=== PATIENT | male | born 1955 | race African-American/Black ===

== ENCOUNTER 2019-05-14 14:25 | Inpatient (IN) | payer MEDICAID ==
--- NOTE | 2019-05-14 14:33 | ER Document Report ---
ED Neuro Symptoms/Deficit - General Stated Complaint: POSSIBLE STROKE Time Seen by Provider: 05/14/19 14:26 Information source: Patient, Relative, Emergency Med Personnel Cannot obtain history due to: Altered mental status Notes: 63-year-old male presents the emergency department for sudden onset of strokelike symptoms. Last known well was 1345 on 05/14/2019. Patient is unable to provide any history due to aphasia. states that they were leaving their nephew's when he suddenly developed right-sided weakness, difficulty speaking and confusion. He also had difficulty with his balance. Patient has n o prior history of stroke but did have a stent placed 1 year ago for heart attack. Patient nods his head yes that he takes blood thinners however when discussing with his pharmacy in [place] they have no blood thinners on record. thinks that he stopped his Plavix at least a month ago. Denies any head injury. - Related Data Allergies/Adverse Reactions: hydrocodone Allergy (Verified 05/14/19 15:54) Past Medical History - General Information source: Patient - Occasionally shakes his head yes and no., Relative - Foot bedside., Emergency Med Personnel - Social History Smoking Status: Former Smoker Frequency of alcohol use: None Drug Abuse: None Family History: CAD Review of Systems - Review of Systems -: Yes ROS unobtainable due to patient's medical condition - Only able to obtained from patient that there is no pain and that there is Constitutional: See HPI, Weakness EENT: denies: Ear discharge, Nose congestion, Nose discharge, Sinus pressure Cardiovascular: No symptoms reported. denies: Chest pain Respiratory: No symptoms reported. denies: Cough, Short of breath Gastrointestinal: No symptoms reported. denies: Nausea, Vomiting Musculoskeletal: See HPI Hematologic/Lymphatic: See HPI. denies: Anemia, Blood clots, Easy bleeding, Easy bruising Neurological/Psychological: See HPI -: Yes All other systems reviewed and negative - Most of this comes from the at bedside. Physical Exam - Notes Notes: GENERAL: Awake, laying in the stretcher, on initial examination patient is tearful and anxious. HEAD: Normocephalic, atraumatic EYES: Pupils equal, round and reactive to light, extraocular movements intact. ENT: Oral mucosa moist, tongue midline. NECK: Full range of motion, supple, trachea midline. LUNGS: Clear to auscultation bilaterally, no wheezes, rales or rhonchi, no respiratory distress. HEART: Regular rate and rhythm, no murmurs, gallops, rubs. ABDOMEN: Soft, nontender, nondistended, bowel sounds present in all 4 quadrants. EXTREMITIES: Spontaneously moves his bilateral lower extremities in order to move in the bed but is unable to follow commands to lift either leg. There is no edema, he is able to lift both hands off the bed but cannot keep either of them in the air in order to fully complete the NIH testing, he has more ataxia with irsdoy-qu-hqni testing on the right than he does on the left. No edema, radial and dorsalis pedis pulses 2/4 bilaterally. No cyanosis. NEUROLOGICAL: Both receptive and expressive aphasia, the expressive aphasia is worse than the receptive aphasia. Almost none of his speech is understandable to me. His has slightly more success understanding a few words here and there. Patient spends quite a bit of time stuttering and searching for words. Patient's speech is slurred and nonsensical, biceps and patellar DTRs 2+ bilaterally. PSYCH: Anxious and tearful. SKIN: Warm, Dry, normal turgor, keloids on his chest. Course - Re-evaluation Re-evalutation: 05/14/19 15:18 Acute stroke symptoms are present, no contraindications noted, last known well was 1345. NIH 20. Please see nursing notes for detailed scale as well as paper charting. Discussed risks and benefits of TPA with and patient including approximately 8% risk of intracranial hemorrhage with approximately 3% risk of but approximately 30% chance of improvement with TPA. Patient and state that they would like to receive the medication. Patient will receive the medication and have a CTA of the head and neck to look for large vessel occlusion. CT without contrast was negative for hemorrhage. 05/14/2019 19:05 CBC unremarkable, coags normal, CMP shows slightly elevated creatinine at 1.38, no old to compare to, cardiac enzymes negative. Patient's NIH is initially 20 although he does have some difficulty following commands to move his legs on both sides. I suspect this is due to a receptive a aphasia and that he does not understand the command rather than true weakness. While he is not able to lift his legs off the bed prior to receiving the TPA he did try to adjust himself in the bed and he spontaneously moved both lower extremities. After receiving TPA patient did have some improvement in his symptoms, he is now able to raise both legs off the bed without difficulty, he is able to say the word "hospital" and to say his age. Discussed case with Dr. Nascimento the booth supervisor who agreed to admit the patient to his service in the intensive care unit so long as I consulted with a neurologist. Chest X-Ray 05/14/19 14:27 IMPRESSION: 1. No acute cardiopulmonary disease. 2. Scattered pulmonary nodules, several of which are indeterminate. A follow-up CT of the chest with IV contrast is recommended. 3. Probable bronchiectasis and pleural and parenchymal scarring at the left lung apex. Head CT 05/14/19 14:27 IMPRESSION: No acute findings EVIDENCE OF ACUTE STROKE: NO. Head CTA 05/14/19 14:50 IMPRESSION: NO CTA EVIDENCE OF STENOSIS OR ANEURYSM OF THE [place]. Neck CTA 05/14/19 14:50 IMPRESSION: NO CTA EVIDENCE OF STENOSIS OR ANEURYSM OF THE [place]. 05/14/19 19:06 I discussed the case with Dr. Lizama the on-call neurologist at [facility]. He is happy to consult on this patient at any point should anything change. He is glad to get a CT angios of the head and neck to look for large ve ssel occlusion. It did not show any large vessel occlusion. He reiterated as long as our hospitalist is comfortable keeping the patient and performing post TPA care that this patient would just receive post TPA care which includes no antiplatelets or anticoagulants for the first 24 hours after receiving TPA, he should get a speech consult before he is fed, he should get a PT/OT consult at least 24 hours after his TPA was given. Recommends a CT scan of the head 24 hours after post TPA to look for post TPA bleed. Recommends starting antiplatelets after 24 hours after the TPA was given. 05/14/19 20:22 - Laboratory Result Diagrams: 05/14/19 14:51 05/14/19 14:51 - EKG Interpretation by Me Additional EKG results interpreted by me: 05/14/19 20:19 EKG shows sinus rhythm at a rate of 88, normal axis, normal intervals, no ST segment elevations or depressions, no T wave inversions per my interpretation. Critical Care Note - Critical Care Note Total time excluding time spent on procedures (mins): 48 ED [employer]te[employer]ase [employer]/Exc Criteria - Date/Time patient last known well: Date/Time: 05/14/2019 13:45 - Inclusion Criteria: 1: Patient presented to ED within 3 hours of acute ischemic stroke symptom onset? -: Yes 2: Did baseline CT exclude intracranial hemorrhage and/or other risk factors? -: Yes 3: Is the age of the patient 18 years of age or greater? -: Yes : If any of the above questions are answered "NO" then stop, patient is not a candidate for Alteplase, : If all of the above questions are answered "YES" then continue with Exclusion Criteria. - Exclusion Criteria: 1: Is there evidence of intracranial hemorrhage on baseline CT? -: No 2: Is there suspicion of subarachnoid hemorrhage (even if CT negative)? -: No 3: Is there a history of serious head trauma, recent previous stroke or [place] within 3 months? -: No 4: Does the patient have a clinical presentation consistent with [place] or post-[place] pericarditis? -: No 5: Is there history of intracranial hemorrhage? -: No 6: On repeated measurement is Systolic BP greater than 185mmHg or Diastolic BP greater that 110 mmHg and is aggressive treatment needed to reduce blood pressure to these limits (e.g. constant infusion of an anti-hypertensive)? -: No 7: Did the patient awake with stroke symptoms? -: No 8: Has the patient had a lumbar puncture or an arterial puncture at a non- compressile site within 7 days? -: No 9: With in the last 14 days did the patient have surgery or major trauma? -: No 10: Is the patient or less than 2 weeks? -: No 11: Was there any active bleeding or acute trauma? -: No 12: Does the patient have intracranial neoplasm, arteriovenous malformation or aneurysm? -: No 13: Does the patient have abnormal glucose (less than 50 or greater than 400mg/dl)? Record glucose in Comment. -: No 14: Patient has rapidly improving symptoms at the time Alteplase is to be Admini stered. -: No 15: Does the patient have any risks for bleeding, including but not limited to: a.: Current use of Coumadin with PT greater than 15 seconds or INR greater than 1.7. b.: Current use of Pradaxa (Dabigatran). c.: Heparin administereed within the past 48 hours and PTT elevated. d.: Platelet count less than 100,000/mm. e.: Major surgery or serious trauma within 14 days. f.: Gastrointestinal or gynecological urinary bleeding within 14 days. g.: Myocardial Infarction ([place]) within 3 months. -: No : If the answer to any of the above questions is "YES" then stop, the patient is not a candidate for Alteplase. : If the answer to all of the above questions is "NO" then the patient may be eligible for the Administration of Alteplase. : If the patient is noted to have seizure activity at onset of Stroke symptoms; Consult Neurologist for further evaluation. - The patient is: -: Included and is eligible to receive Alteplase. *Initiate bed placement at higher level of care* --: Yes - Kept in ED for observation, then accepted to ICU Reviewed risks & benefits of thrombolytic therapy: I have reviewed the risks and benefits of thrombolytic therapy with the patient and/or his/her family. Yes -: Excluded and not eligible to receive Alteplase for the above exclusions. -: Excluded and not eligible to receive Alteplase for other reasons (specify in comments): - Diagnosis of TIA: -: Patient presented with transient symptoms that are now resolved and no other neurologic findings are currently present. List symptoms in comments. -: Patient is NOT a candidate for tPA. -: ____(put name in comment) has been consulted for admission and continued evaluation of risk factor assessment. Discharge - Discharge Clinical Impression: Acute ischemic stroke Condition: Serious Disposition: ADMITTED INPATIENT Admitting Provider: Pily (Packing Room Worker) Unit Admitted: ICU
--- NOTE | 2019-05-14 14:56 | RADIOLOGY REPORT (SQ) ---
EXAM DESCRIPTION: CT HEAD WITHOUT COMPLETED DATE/TIME: 05/14/2019 2:39 pm REASON FOR STUDY: stroke alert COMPARISON: None. TECHNIQUE: Axial images acquired through the brain without intravenous contrast. Images reviewed wi th bone, brain and subdural windows. Additional sagittal and coronal reconstructions were generated. Images stored on PACS. All CT scanners at this facility use dose modulation, iterative reconstruction, and/or weight based d osing when appropriate to reduce radiation dose to as low as reasonably achievable (ALARA). [facility]: Dose Right [facility]: CareDose [facility]: Dose Right [facility]: Teradose 4D [facility]: [employer] RADIATION DOSE: CT Rad equipment meets quality standard of care and radiation dose reduction techniq ues were employed. CTDIvol: 53.2 mGy. DLP: 1124 mGy-cm. mGy. LIMITATIONS: None. FINDINGS: VENTRICLES: Normal size and contour. CEREBRUM: No CT evidence of acute large territory ischemic change, acute intracranial hemorrhage, mas s effect, or midline shift. There are multiple areas of low attenuation in the right and left thalam us and right basal ganglia from old lacunar infarcts. Mild spotty chronic white matter disease. CEREBELLUM: No masses. No hemorrhage. No alteration of density. No evidence for acute infarction. EXTRAAXIAL SPACES: No fluid collections. No masses. ORBITS AND GLOBE: No intra- or extraconal masses. Normal contour of globe without masses. CALVARIUM: No fracture. PARANASAL SINUSES: No fluid or mucosal thickening. SOFT TISSUES: No mass or hematoma. OTHER: No other significant finding. IMPRESSION: No acute findings EVIDENCE OF ACUTE STROKE: NO. COMMENT: Pertinent positive or negative findings of the imaging study reported as a CRITICAL EXAM denise AGUIAR DO at14:40 on 05/14/2019. Category of Critical Exam: CT code stroke Quality ID # [id number]: Final reports with documentation of one or more dose reduction techniques (e.g., Au tomated exposure control, adjustment of the mA and/or kV according to patient size, use of iterative reconstruction technique) TECHNICAL DOCUMENTATION: JOB ID: [id number] [employer]- All Rights Reserved Reading location - IP/workstation name: [email or web address]
--- NOTE | 2019-05-14 14:56 | RADIOLOGY REPORT (SQ) ---
EXAM DESCRIPTION: CHEST SINGLE VIEW COMPLETED DATE/TIME: 05/14/2019 1:41 pm REASON FOR STUDY: stroke alert COMPARISON: None. EXAM PARAMETERS: NUMBER OF VIEWS: One view. TECHNIQUE: Single frontal radiographic view of the chest acquired. RADIATION DOSE: NA LIMITATIONS: None. FINDINGS: LUNGS AND PLEURA: There is no focal consolidation or pleural effusion. Linear atelectasis and probable bronchiectasis at the left upper lobe. A few scattered subcentimeter nodules some of w hich may be calcified granulomas. A few nodules are indeterminate such as a 5 mm nodule at the right mid lung. No pneumothorax. MEDIASTINUM AND HILAR STRUCTURES: No masses. Contour normal. HEART AND VASCULAR STRUCTURES: Heart normal in size. Normal vasculature. BONES: No acute findings. HARDWARE: None in the chest. OTHER: No other significant finding. IMPRESSION: 1. No acute cardiopulmonary disease. 2. Scattered pulmonary nodules, several of which are indeterminate. A follow-up CT of the chest with IV contrast is recommended. 3. Probable bronchiectasis and pleural and parenchymal scarring at the left lung apex. TECHNICAL DOCUMENTATION: JOB ID: [id number] [employer]- All Rights Reserved Reading location - IP/workstation name: [email or web address]
[2019-05-14 15:01] LABS: ABSOLUTE BASOPHILS # (AUTO) 0.1 10^3/uL (0.0-0.2); ABSOLUTE EOSINOPHILS # (AUTO) 0.4 10^3/uL (0.0-0.6); ABSOLUTE LYMPHOCYTES (AUTO) 2.3 10^3/uL (0.5-4.7); ABSOLUTE MONOCYTES (AUTO) 0.5 10^3/uL (0.1-1.4); ABSOLUTE NEUT (AUTO) 5.3 10^3/uL (1.7-8.2); BASOPHILS % (AUTO) 1.4 % (0-2); EOSINOPHILS % (AUTO) 4.6 % (0-6); HEMATOCRIT 41.6 % (37.9-51.0); HEMOGLOBIN 14.5 g/dL (13.5-17.0); LYMPHOCYTES % (AUTO) 26.5 % (13-45); MEAN CORPUSCULAR HEMOGLOBIN 31.3 pg (27.0-33.4); MEAN CORPUSCULAR HGB CONC 34.7 g/dL (32.0-36.0); MEAN CORPUSCULAR VOLUME 90 fl (80-97); MONOCYTES % (AUTO) 6.3 % (3-13); PLATELET COUNT 331 10^3/uL (150-450); RED BLOOD COUNT 4.62 10^6/uL (4.35-5.55); SEGMENTED NEUTROPHILS % (AUTO) 61.2 % (42-78); TOTAL CELLS COUNTED % (AUTO) 100 %; WHITE BLOOD COUNT 8.7 10^3/uL (4.0-10.5)
--- NOTE | 2019-05-14 15:01 | EKG REPORT ---
SEVERITY:- BORDERLINE ECG - SINUS RHYTHM PROBABLE LEFT ATRIAL ABNORMALITY : Confirmed by: Sukhi Elkins MD 14-May-2019 15:01:17
[2019-05-14 15:04] LABS: INTERNATIONAL RATION (INR) 0.96; PROTHROMBIN TIME 12.8 SEC (11.4-15.4)
[2019-05-14 15:05] LABS: PARTIAL THROMBOPLASTIN TIME 28.6 SEC (23.5-35.8)
[2019-05-14] MEDS ORDERED: ALTEPLASE INJ 100 MG VIAL ONE (15:22)
[2019-05-14] MEDS ORDERED: ALTEPLASE INJ 100 MG VIAL IV ONE (15:23)
[2019-05-14] MEDS ORDERED: NICARDIPINE HCL RTU, ISO-OS 20 MG/200 ML RTUINJ IV PRN (15:23)
[2019-05-14 15:32] LABS: ALBUMIN 4.2 g/dL (3.5-5.0); ALKALINE PHOSPHATASE 111 U/L (38-126); ANION GAP 11 (5-19); ASPARTATE AMINO TRANSFERASE 25 U/L (17-59); BILIRUBIN,TOTAL 0.5 mg/dL (0.2-1.3); BLOOD UREA NITROGEN 16 mg/dL (7-20); CALCIUM 9.8 mg/dL (8.4-10.2); CARBON DIOXIDE 23 mmol/L (22-30); CHLORIDE 107 mmol/L (98-107); CREATINE KINASE 241 U/L (55-170); GLUCOSE 151 mg/dL (75-110); POTASSIUM 4.1 mmol/L (3.6-5.0); TOTAL PROTEIN 7.5 g/dL (6.3-8.2)
[2019-05-14 15:42] LABS: CREATINE KINASE MB 1.58 ng/mL (<4.55)
[2019-05-14 15:50] LABS: TROPONIN I < 0.012 ng/mL
--- NOTE | 2019-05-14 16:39 | RADIOLOGY REPORT (SQ) ---
EXAM DESCRIPTION: CTA NECK; CTA HEAD COMPLETED DATE/TIME: 05/14/2019 3:15 pm REASON FOR STUDY: right sided weakness, r/o LVO right-sided weakness and aphasia. COMPARISON: None. TECHNIQUE: Post IV contrast scanning, thin section axial imaging through the brain to evaluate the a rterial structures. Post IV contrast scanning from the aortic arch through the skullbase. Source an d MIP images are saved and reviewed on PACS. Advanced 3D imaging as volume-rendering, MIPs, SSD performed? yes All CT scanners at this facility use dose modulation, iterative reconstruction, and/or weight based d osing when appropriate to reduce radiation dose to as low as reasonably achievable (ALARA). [facility]: Dose Right [facility]: CareDose [facility]: Dose Right [facility]: Teradose 4D [facility]: [employer] CONTRAST TYPE AND DOSE: contrast/concentration: Isovue 350.00 mg/ml; Total Contrast Delivered: 70.0 ml; Total Saline Delivered: 75.0 ml RENAL FUNCTION: GFR > 60. LIMITATIONS: None. FINDINGS: [place]: The anterior, middle, posterior cerebral arteries are all patent. No ev idence of aneurysm or focal stenosis. There is atherosclerotic plaque at the cavernous sinus. . POSTERIOR CIRCULATION: The distal vertebral arteries are patent as is the basilar artery. No aneurysm . BRAIN: No gross enhancing lesions as visualized. The superior cerebral hemispheres are not included in the field of view. RIGHT CAROTIDS: Patent common, internal and external carotid arteries without suggestion of significa nt stenosis or irregular plaque. No dissection. RIGHT VERTEBRAL: Patent. No dissection. LEFT CAROTIDS: Patent common, internal and external carotid arteries without suggestion of significan t stenosis or irregular plaque. No dissection. LEFT VERTEBRAL: Patent. No dissection. BONES: Intact as visualized. SINUSES: No fluid or mucosal thickening. OTHER: No other significant finding. IMPRESSION: NO CTA EVIDENCE OF STENOSIS OR ANEURYSM OF THE [place]. TECHNICAL DOCUMENTATION: JOB ID: [id number] Quality ID # [id number]: Final reports with documentation of one or more dose reduction techniques (e.g., Au tomated exposure control, adjustment of the mA and/or kV according to patient size, use of iterative reconstruction technique) 2010 [employer]- All Rights Reserved Reading location - IP/workstation name: [email or web address]
--- NOTE | 2019-05-14 16:39 | RADIOLOGY REPORT (SQ) ---
EXAM DESCRIPTION: CTA NECK; CTA HEAD COMPLETED DATE/TIME: 05/14/2019 3:15 pm REASON FOR STUDY: right sided weakness, r/o LVO right-sided weakness and aphasia. COMPARISON: None. TECHNIQUE: Post IV contrast scanning, thin section axial imaging through the brain to evaluate the a rterial structures. Post IV contrast scanning from the aortic arch through the skullbase. Source an d MIP images are saved and reviewed on PACS. Advanced 3D imaging as volume-rendering, MIPs, SSD performed? yes All CT scanners at this facility use dose modulation, iterative reconstruction, and/or weight based d osing when appropriate to reduce radiation dose to as low as reasonably achievable (ALARA). [facility]: Dose Right [facility]: CareDose [facility]: Dose Right [facility]: Teradose 4D [facility]: [employer] CONTRAST TYPE AND DOSE: contrast/concentration: Isovue 350.00 mg/ml; Total Contrast Delivered: 70.0 ml; Total Saline Delivered: 75.0 ml RENAL FUNCTION: GFR > 60. LIMITATIONS: None. FINDINGS: [place]: The anterior, middle, posterior cerebral arteries are all patent. No ev idence of aneurysm or focal stenosis. There is atherosclerotic plaque at the cavernous sinus. . POSTERIOR CIRCULATION: The distal vertebral arteries are patent as is the basilar artery. No aneurysm . BRAIN: No gross enhancing lesions as visualized. The superior cerebral hemispheres are not included in the field of view. RIGHT CAROTIDS: Patent common, internal and external carotid arteries without suggestion of significa nt stenosis or irregular plaque. No dissection. RIGHT VERTEBRAL: Patent. No dissection. LEFT CAROTIDS: Patent common, internal and external carotid arteries without suggestion of significan t stenosis or irregular plaque. No dissection. LEFT VERTEBRAL: Patent. No dissection. BONES: Intact as visualized. SINUSES: No fluid or mucosal thickening. OTHER: No other significant finding. IMPRESSION: NO CTA EVIDENCE OF STENOSIS OR ANEURYSM OF THE [place]. TECHNICAL DOCUMENTATION: JOB ID: [id number] Quality ID # [id number]: Final reports with documentation of one or more dose reduction techniques (e.g., Au tomated exposure control, adjustment of the mA and/or kV according to patient size, use of iterative reconstruction technique) 2010 [employer]- All Rights Reserved Reading location - IP/workstation name: [email or web address]
[2019-05-14] MEDS ORDERED: ACETAMINOPHEN 325 MG TABLET PO PRN (18:43)
[2019-05-14] MEDS ORDERED: LABETALOL HCL INJ 20 MG/4 ML DISP.SYRIN IV PRN (18:43)
[2019-05-14] MEDS ORDERED: ONDANSETRON 4 MG TAB.RAPDIS PO PRN (18:45)
[2019-05-14] MEDS ORDERED: FAMOTIDINE 20 MG TABLET PO SCH (19:00)
[2019-05-14] MEDS: NORMAL SALINE 1000 ML 1,000 ML IV PRN (21:03)
[2019-05-14] MEDS ORDERED: GLUCAGON,HUMAN RECOMB 1 MG INJ IM PRN (21:28)
[2019-05-14] MEDS ORDERED: DEXTROSE 50%-WATER 25 GM/50 ML DISP.SYRIN IV PRN ×2 (21:28)
[2019-05-14] MEDS ORDERED: DEXTROSE 40% GEL 15 GM TUBE PO PRN ×2 (21:28)
[2019-05-14] MEDS ORDERED: ACETAMINOPHEN 650 MG SUPP.RECT PR PRN (21:35)
[2019-05-14 21:51] LABS: HEMATOCRIT 38.1 % (37.9-51.0); MEAN CORPUSCULAR HEMOGLOBIN 30.9 pg (27.0-33.4); MEAN CORPUSCULAR HGB CONC 34.1 g/dL (32.0-36.0); MEAN CORPUSCULAR VOLUME 91 fl (80-97); PLATELET COUNT 327 10^3/uL (150-450); RED BLOOD COUNT 4.21 10^6/uL (4.35-5.55); RED CELL DISTRIBUTION WIDTH 15.1 % (11.5-14.0); WHITE BLOOD COUNT 10.3 10^3/uL (4.0-10.5)
[2019-05-14] MEDS ORDERED: FAMOTIDINE INJ/PF 20 MG/2 ML SDV IV SCH (22:00)
--- NOTE | 2019-05-14 22:03 | Progress Note ---
Provider Note Provider Note: Overnight coverage follow up note s/p TPA for acute ischemic CVA: Awakens easily to voice, follows commands with all four extremities, pupils PERRL. Remains with small amount of right facial droop and CN VII weakness to right side of face without drooling at this time, able to verbalize which is an improvement compared to pre-TPA though he admits to having some mild difficulty with expressive aphasia. Remains with RUE/RLE weakness and numbness, though RUE motor is slightly improved noting he attempts to use gross motor when squeezing with his right hand. Right hand electro optical engineer strength 1/5. LUE electro optical engineer strength also weak 2/5 but better than his RUE. RLE strength appears to be closely symmetric on my exam but patient reports it feels slightly weaker than LLE. Both extremities overall are weak but he was able to raise both of them slightly off the bed to ~20 degrees. Denies headache. Vitals: HR 78 NSR, BP 142/78, RR 12, 99% on RA Will continue to monitor throughout the night to ensure no neurological deterioration warranting a head CT to r/o ICH.
[2019-05-14 22:10] LABS: ABSOLUTE LYMPHOCYTES# (MANUAL) 3.1 10^3/uL (0.5-4.7); ABSOLUTE MONOCYTES # (MANUAL) 0.6 10^3/uL (0.1-1.4); BASOPHILS % (MANUAL) 0 % (0-2); EOSINOPHILS % (MANUAL) 7 % (0-6); LYMPHOCYTES % (MANUAL) 29 % (13-45); MONOCYTES % (MANUAL) 6 % (3-13); SEGMENTED NEUTROPHILS % (MAN) 57 % (42-78); TOTAL CELLS COUNTED 100
[2019-05-14 22:12] LABS: ANISOCYTOSIS SLIGHT; OVALOCYTES SLIGHT; PLATELET COMMENT ADEQUATE; POIKILOCYTOSIS SLIGHT; TOXIC GRANULATION SLIGHT
[2019-05-15] MEDS: INSULIN REG, HUMAN 100 UNIT/ML 3 ML VIAL (PYX) SUBCUT SCH ×5 (00:02→23:20)
[2019-05-15] MEDS ORDERED: MORPHINE SULFATE 10 MG/ML INJ ONE (02:10)
[2019-05-15] MEDS ORDERED: MORPHINE SULFATE 10 MG/ML INJ IV ONE ×2 (02:30)
[2019-05-15] MEDS ORDERED: HYDROMORPHONE HCL INJ/PF 2 MG/ML AMPULE ONE ×2 (03:20→10:31)
[2019-05-15] MEDS ORDERED: HYDROMORPHONE HCL INJ/PF 2 MG/ML AMPULE IV ONE (04:00)
[2019-05-15 04:37] LABS: ABSOLUTE BASOPHILS # (AUTO) 0.1 10^3/uL (0.0-0.2); ABSOLUTE EOSINOPHILS # (AUTO) 0.5 10^3/uL (0.0-0.6); ABSOLUTE LYMPHOCYTES (AUTO) 2.3 10^3/uL (0.5-4.7); ABSOLUTE MONOCYTES (AUTO) 0.8 10^3/uL (0.1-1.4); ABSOLUTE NEUT (AUTO) 4.8 10^3/uL (1.7-8.2); BASOPHILS % (AUTO) 1.3 % (0-2); EOSINOPHILS % (AUTO) 5.3 % (0-6); HEMATOCRIT 38.6 % (37.9-51.0); HEMOGLOBIN 13.3 g/dL (13.5-17.0); LYMPHOCYTES % (AUTO) 27.6 % (13-45); MEAN CORPUSCULAR HGB CONC 34.3 g/dL (32.0-36.0); MEAN CORPUSCULAR VOLUME 90 fl (80-97); MONOCYTES % (AUTO) 9.5 % (3-13); PLATELET COUNT 304 10^3/uL (150-450); RED BLOOD COUNT 4.29 10^6/uL (4.35-5.55); RED CELL DISTRIBUTION WIDTH 15.1 % (11.5-14.0); SEGMENTED NEUTROPHILS % (AUTO) 56.3 % (42-78); TOTAL CELLS COUNTED % (AUTO) 100 %; WHITE BLOOD COUNT 8.5 10^3/uL (4.0-10.5)
[2019-05-15] MEDS: NORMAL SALINE 1000 ML 1,000 ML IV PRN (09:32)
[2019-05-15] MEDS: PANTOPRAZOLE SODIUM 40 MG VIAL IV SCH (09:32)
[2019-05-15] MEDS: HYDROMORPHONE HCL INJ/PF 2 MG/ML AMPULE IV PRN ×2 (10:35→23:20)
--- NOTE | 2019-05-15 10:39 | PDOC CRITICAL CARE PROG REPORT ---
General Date:: 05/15/19 ICU Day:: 2 Hospital Day:: 2 Resuscitation Status: Full Code Events in the past 12 to 24 Hours:: Successful tPA for ischemic stroke. Symptoms improving. Review of systems relevant to events:: Neurological. CV. Reason for ICU Addmission:: S/P tPA - Medications: Medications reviewed and adjusted accordingly: Yes Vasopressors:: None Sedation:: None Physical Exam Vital Signs: Temp Pulse Resp BP Pulse Ox 97.1 F 70 10 L 152/80 H 99 05/15/19 08:00 05/15/19 09:43 05/15/19 09:43 05/15/19 09:43 05/15/19 09:43 Intake & Output 05/14/19 05/15/19 05/16/19 06:59 06:59 06:59 Intake Total 1000 Output Total 320 300 Balance -320 700 Weight 98.2 kg Weight/Height Weight 98.2 kg Height 6 ft General appearance: PRESENT: no acute distress, well-developed, well-nourished Head exam: PRESENT: atraumatic, normocephalic Eye exam: PRESENT: EOMI, PERRLA Ear exam: PRESENT: normal external ear exam Mouth exam: PRESENT: dry mucosa, tongue midline, other - No evidence for facial droop. Neck exam: ABSENT: carotid bruit, JVD, lymphadenopathy, thyromegaly Respiratory exam: PRESENT: clear to auscultation [place]. ABSENT: rales, rhonchi, wheezes Pulses: PRESENT: normal dorsalis pedis pul Vascular exam: PRESENT: normal capillary refill GI/Abdominal exam: PRESENT: normal bowel sounds, soft. ABSENT: distended, guarding, mass, organolmegaly, rebound, tenderness Rectal exam: PRESENT: deferred Extremities exam: PRESENT: full ROM. ABSENT: calf tenderness, clubbing, pedal edema Neurological exam: PRESENT: alert, awake, oriented to person, oriented to place, oriented to time, oriented to situation, CN II-XII grossly intact, aphasic, other. ABSENT: motor sensory deficit Skin exam: PRESENT: dry, intact, warm. ABSENT: cyanosis, rash Laboratory/Radiographs Laboratory Results: 05/15/19 03:55 05/14/19 14:51 05/14/19 05/14/19 05/14/19 14:51 14:51 19:31 WBC 8.7 10.3 RBC 4.62 4.21 L Hgb 14.5 13.0 L Hct 41.6 38.1 MCV 90 91 MCH 31.3 30.9 MCHC 34.7 34.1 RDW 15.0 H 15.1 H Plt Count 331 327 Seg Neutrophils % 61.2 Not Reportable Sodium 140.5 Potassium 4.1 Chloride 107 Carbon Dioxide 23 Anion Gap 11 BUN 16 Creatinine 1.38 H Est GFR ( Amer) > 60 Glucose 151 H Calcium 9.8 Total Bilirubin 0.5 AST 25 Alkaline Phosphatase 111 Total Protein 7.5 Albumin 4.2 05/15/19 03:55 WBC 8.5 RBC 4.29 L Hgb 13.3 L Hct 38.6 MCV 90 MCH 31.0 MCHC 34.3 RDW 15.1 H Plt Count 304 Seg Neutrophils % 56.3 Sodium Potassium Chloride Carbon Dioxide Anion Gap BUN Creatinine Est GFR ( Amer) Glucose Calcium Total Bilirubin AST Alkaline Phosphatase Total Protein Albumin 05/14/19 05/14/19 14:51 14:51 Creatine Kinase 241 H CK-MB (CK-2) 1.58 Troponin I < 0.012 Impressions: Chest X-Ray 05/14/19 14:27 IMPRESSION: 1. No acute cardiopulmonary disease. 2. Scattered pulmonary nodules, several of which are indeterminate. A follow-up CT of the chest with IV contrast is recommended. 3. Probable bronchiectasis and pleural and parenchymal scarring at the left lung apex. Head CT 05/14/19 14:27 IMPRESSION: No acute findings EVIDENCE OF ACUTE STROKE: NO. Head CTA 05/14/19 14:50 IMPRESSION: NO CTA EVIDENCE OF STENOSIS OR ANEURYSM OF THE [place]. Neck CTA 05/14/19 14:50 IMPRESSION: NO CTA EVIDENCE OF STENOSIS OR ANEURYSM OF THE [place]. All labs, radiographs, diagnostic studies and EKGs were personally reviewed: Yes In addition, reports of radiographic and diagnostic studies were read: Yes Assessment and Plan - Diagnosis (1) Acute ischemic stroke Is this a current diagnosis for this admission?: Yes Plan: He had tPA in the ED about 4P. His symptoms have not resolved but are better. No facial droop. Speech more articulate and more intelligable. Moves R hand easier and now can lift arm over his head. R lag can perform heel to church much better than yesterday. Start ASA and plavix after 24 hrs. Seen by PT not yet by speech. (2) CAD (coronary artery disease) Qualifiers: Coronary Disease-Associated Artery/Lesion type: [place] artery [place] vs. transplanted heart: [place] heart Associated angina: with stable angina Qualified Code(s): I25.118 - Atherosclerotic heart disease of [place] coronary artery with other forms of angina pectoris Is this a current diagnosis for this admission?: Yes Plan: Was to have catheterization Thursday in [place], [place]. Now on hold. (3) Headache Qualifiers: Headache type: other headache syndrome Qualified Code(s): G44.89 - Other headache syndrome Is this a current diagnosis for this admission?: Yes Plan: Responsive to dilaudid, not MSO4 or tylenol. Always a concern with tPA. However this occurred shortly after tPA was given, he is awake and his neuro exam is improved. Continue to monitor neuro status. 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 Keep BG under 200 for neurologic injury. Plan Summary: Keep in ICU for 24 hours after tPA then start ASA and plavix. OK to downgrade after that. Critical Time Critical Time (minutes): 35 Level of Care: ICU Anticipated discharge: Home Within: within 72 hours -: 1. The care of a critical patient is a dynamic process. This note is a floor representative synopsis but static in nature. The timeframe for treatments given in order is not necessarily the actual time these treatments may have been done. 2. This patient requires critical care secondary to ongoing requirements for therapy not offered or safe outside the critical care environment. Transfer to a lower level of care will result in altered life or limb morbidity and mortality. 3. Multidisciplinary rounds completed. 4. ABCDE bundle addressed.
--- NOTE | 2019-05-15 12:41 | CRITICAL CARE ADMISSION REPORT ---
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 He came to our ED where there were more contraindication for tPA and he was subsequently thrombolysed. He is still having symptoms but minor improvement just after 2 hours. Right now his BP and vitals are stable with BP running in 150s. He will be admitted to our ICU. History obtained from:: and ED physician - Diagnosis/Plan (1) Acute ischemic stroke Is this a current diagnosis for this admission?: Yes Plan: Watch in ICU X 24 hours and if stable start ASA and plavix tomorrow. PT and speech to see. Cardiology on hold. (2) CAD (coronary artery disease) Qualifiers: Coronary Disease-Associated Artery/Lesion type: [place] artery [place] vs. transplanted heart: [place] heart Associated angina: with stable angina Qualified Code(s): I25.118 - Atherosclerotic heart disease of [place] coronary artery with other forms of angina pectoris Is this a current diagnosis for this admission?: Yes Plan: He will certainly need this addressed at a later date. (3) Headache Qualifiers: Headache type: other headache syndrome Qualified Code(s): G44.89 - Other headache syndrome (4) DM type 2 (diabetes mellitus, type 2) Qualifiers: Diabetes mellitus group home insulin use: without group home use Diabetes mellitus complication status: with circulatory complication Is this a current diagnosis for this admission?: Yes Plan: Controlled. - . Plan Summary: Asa and plavix later in 24 hours. Downgrade if stable. Past Medical History Cardiac Medical History: Reports: Congestive Heart Failure, Hypertension Endocrine Medical History: Reports: Diabetes Mellitus Type 2 Psychiatric Medical History: Reports: Depression Social/Family History - Social History Smoking Status: Former Smoker Frequency of Alcohol Use: None - Medication/Allergies Home Medications: Amlodipine Besylate [Norvasc 5 mg Tablet] 5 mg PO DAILY 05/15/19 Aspirin [Adult Low Dose Aspirin EC] 81 mg PO DAILY 05/15/19 Atorvastatin Calcium [Lipitor 80 mg Tablet] 80 mg PO QHS 05/15/19 Gabapentin [Neurontin 400 mg Capsule] 400 mg PO Q8 05/15/19 Metoprolol Tartrate [Lopressor 50 mg Tablet] 50 mg PO Q12 05/15/19 Omeprazole 20 mg PO DAILY 05/15/19 Sitagliptin Phosphate [Januvia] 50 mg PO DAILY 05/15/19 Allergies/Adverse Reactions: hydrocodone Allergy (Verified 05/14/19 15:54) Review of Systems All systems: reviewed and no additional remarkable complaints except as stated Physical Exam Vital Signs: Temp Pulse Resp BP Pulse Ox 97.1 F 74 10 L 120/70 96 05/15/19 08:00 05/15/19 11:43 05/15/19 11:43 05/15/19 11:43 05/15/19 11:43 Intake & Output 05/14/19 05/15/19 05/16/19 06:59 06:59 06:59 Intake Total 1000 Output Total 320 300 Balance -320 700 Weight 98.2 kg Weight/Height Weight 98.2 kg Height 6 ft General appearance: PRESENT: no acute distress, cooperative Head exam: PRESENT: atraumatic, normocephalic Eye exam: PRESENT: conjunctiva pink, EOMI, PERRLA. ABSENT: scleral icterus Ear exam: PRESENT: normal external ear exam Mouth exam: PRESENT: moist, tongue midline Respiratory exam: PRESENT: clear to auscultation [place]. ABSENT: rales, rhonchi, wheezes Cardiovascular exam: PRESENT: RRR. ABSENT: diastolic murmur, rubs, systolic murmur Vascular exam: PRESENT: normal capillary refill GI/Abdominal exam: PRESENT: normal bowel sounds, soft. ABSENT: distended, guarding, mass, organolmegaly, rebound, tenderness Rectal exam: PRESENT: deferred Extremities exam: PRESENT: full ROM. ABSENT: calf tenderness, clubbing, pedal edema Musculoskeletal exam: PRESENT: normal inspection Neurological exam: PRESENT: alert, awake, oriented to person, oriented to place, motor sensory deficit - R hand and arm weak as is R leg., aphasic Skin exam: PRESENT: dry, intact, warm. ABSENT: cyanosis, rash Laboratory/Radiographs Laboratory Results: 05/15/19 03:55 05/14/19 14:51 05/14/19 05/14/19 05/14/19 14:51 14:51 19:31 WBC 8.7 10.3 RBC 4.62 4.21 L Hgb 14.5 13.0 L Hct 41.6 38.1 MCV 90 91 MCH 31.3 30.9 MCHC 34.7 34.1 RDW 15.0 H 15.1 H Plt Count 331 327 Seg Neutrophils % 61.2 Not Reportable Sodium 140.5 Potassium 4.1 Chloride 107 Carbon Dioxide 23 Anion Gap 11 BUN 16 Creatinine 1.38 H Est GFR ( Amer) > 60 Glucose 151 H Calcium 9.8 Total Bilirubin 0.5 AST 25 Alkaline Phosphatase 111 Total Protein 7.5 Albumin 4.2 05/15/19 03:55 WBC 8.5 RBC 4.29 L Hgb 13.3 L Hct 38.6 MCV 90 MCH 31.0 MCHC 34.3 RDW 15.1 H Plt Count 304 Seg Neutrophils % 56.3 Sodium Potassium Chloride Carbon Dioxide Anion Gap BUN Creatinine Est GFR ( Amer) Glucose Calcium Total Bilirubin AST Alkaline Phosphatase Total Protein Albumin 05/14/19 05/14/19 14:51 14:51 Creatine Kinase 241 H CK-MB (CK-2) 1.58 Troponin I < 0.012 Impressions: Chest X-Ray 05/14/19 14:27 IMPRESSION: 1. No acute cardiopulmonary disease. 2. Scattered pulmonary nodules, several of which are indeterminate. A follow-up CT of the chest with IV contrast is recommended. 3. Probable bronchiectasis and pleural and parenchymal scarring at the left lung apex. Head CT 05/14/19 14:27 IMPRESSION: No acute findings EVIDENCE OF ACUTE STROKE: NO. Head CTA 05/14/19 14:50 IMPRESSION: NO CTA EVIDENCE OF STENOSIS OR ANEURYSM OF THE [place]. Neck CTA 05/14/19 14:50 IMPRESSION: NO CTA EVIDENCE OF STENOSIS OR ANEURYSM OF THE [place]. EKG: NSR All labs, radiographs, diagnostic studies and EKGs were personally reviewed: Yes In addition, reports of radiographic and diagnostic studies were read: Yes Critical Time Critical Time (minutes): 40 -: The care of a critically ill patient is dynamic. This note represents a static moment in the admission process. Orders and treatments may be given simult aneously and urgently, and time is not artists' booking representative of the treatment process. This patient requires Critical Care secondary to life threatening organ or limb dysfunction. Without Critical Care services, the patient is at risk for increased mortality and morbidity.
--- NOTE | 2019-05-15 16:21 | RADIOLOGY REPORT (SQ) ---
EXAM DESCRIPTION: CT HEAD WITHOUT COMPLETED DATE/TIME: 05/15/2019 2:52 pm REASON FOR STUDY: 24 hrs post tPA administration (+/-6 hrs) COMPARISON: CT head 05/14/2019 TECHNIQUE: Axial images acquired through the brain without intravenous contrast. Images reviewed wi th bone, brain and subdural windows. Additional sagittal and coronal reconstructions were generated. Images stored on PACS. All CT scanners at this facility use dose modulation, iterative reconstruction, and/or weight based d osing when appropriate to reduce radiation dose to as low as reasonably achievable (ALARA). [facility]: Dose Right [facility]: CareDose [facility]: Dose Right [facility]: Teradose 4D [facility]: Smart SoloLearn RADIATION DOSE: CT Rad equipment meets quality standard of care and radiation dose reduction techniq ues were employed. CTDIvol: 53.2 mGy. DLP: 937 mGy-cm. mGy. LIMITATIONS: None. FINDINGS: VENTRICLES: Normal size and contour. CEREBRUM: No masses. No hemorrhage. No midline shift. No evidence for acute infarction. Old right thalamic infarct Normal dickey/white matter differentiation. No areas of low density in the white veronica er. CEREBELLUM: No masses. No hemorrhage. No alteration of density. No evidence for acute infarction. EXTRAAXIAL SPACES: No fluid collections. No masses. ORBITS AND GLOBE: No intra- or extraconal masses. Normal contour of globe without masses. CALVARIUM: No fracture. PARANASAL SINUSES: No fluid or mucosal thickening. SOFT TISSUES: No mass or hematoma. OTHER: No other significant finding. IMPRESSION: No acute intracranial hemorrhage or other acute findings. EVIDENCE OF ACUTE STROKE: NO. COMMENT: Quality ID # [id number]: Final reports with documentation of one or more dose reduction techniques (e.g., Automated exposure control, adjustment of the mA and/or kV according to patient size, use of iterative reconstruction technique) TECHNICAL DOCUMENTATION: JOB ID: [id number] [employer]- All Rights Reserved Reading location - IP/workstation name: [email or web address]
[2019-05-15 18:58] LABS: ABSOLUTE BASOPHILS # (AUTO) 0.1 10^3/uL (0.0-0.2); ABSOLUTE EOSINOPHILS # (AUTO) 0.2 10^3/uL (0.0-0.6); ABSOLUTE LYMPHOCYTES (AUTO) 1.5 10^3/uL (0.5-4.7); ABSOLUTE MONOCYTES (AUTO) 0.4 10^3/uL (0.1-1.4); EOSINOPHILS % (AUTO) 2.3 % (0-6); SEGMENTED NEUTROPHILS % (AUTO) 76.7 % (42-78); TOTAL CELLS COUNTED % (AUTO) 100 %
[2019-05-15 19:05] LABS: ABSOLUTE NEUT (AUTO) 6.8 10^3/uL (1.7-8.2); BASOPHILS % (AUTO) 0.6 % (0-2); HEMOGLOBIN 13.5 g/dL (13.5-17.0); LYMPHOCYTES % (AUTO) 16.4 % (13-45); MEAN CORPUSCULAR HEMOGLOBIN 30.9 pg (27.0-33.4); MEAN CORPUSCULAR HGB CONC 34.6 g/dL (32.0-36.0); MEAN CORPUSCULAR VOLUME 89 fl (80-97); PLATELET COUNT 319 10^3/uL (150-450); RED BLOOD COUNT 4.37 10^6/uL (4.35-5.55); WHITE BLOOD COUNT 8.9 10^3/uL (4.0-10.5)
[2019-05-16] MEDS ORDERED: INSULIN REG, HUMAN 100 UNIT/ML 3 ML VIAL (PYX) SUBCUT SCH (08:00)
[2019-05-16] MEDS: INSULIN REG, HUMAN 100 UNIT/ML 3 ML VIAL (PYX) SUBCUT SCH ×5 (09:25→22:12)
[2019-05-16] MEDS: TICAGRELOR 90 MG TABLET PO SCH ×2 (09:26→19:10)
[2019-05-16] MEDS: PANTOPRAZOLE SODIUM 40 MG VIAL IV SCH (09:26)
[2019-05-16] MEDS: HYDROMORPHONE HCL INJ/PF 2 MG/ML AMPULE IV PRN (09:26)
[2019-05-16] MEDS: ASPIRIN 325 MG TABLET PO SCH (09:27)
[2019-05-16] MEDS ORDERED: TICAGRELOR 90 MG TABLET PO SCH (10:00)
[2019-05-16 11:42] LABS: ABSOLUTE BASOPHILS # (AUTO) 0.1 10^3/uL (0.0-0.2); ABSOLUTE EOSINOPHILS # (AUTO) 0.4 10^3/uL (0.0-0.6); ABSOLUTE LYMPHOCYTES (AUTO) 1.7 10^3/uL (0.5-4.7); ABSOLUTE MONOCYTES (AUTO) 0.7 10^3/uL (0.1-1.4); ABSOLUTE NEUT (AUTO) 4.4 10^3/uL (1.7-8.2); BASOPHILS % (AUTO) 0.8 % (0-2); EOSINOPHILS % (AUTO) 5.9 % (0-6); HEMATOCRIT 38.2 % (37.9-51.0); HEMOGLOBIN 13.2 g/dL (13.5-17.0); MEAN CORPUSCULAR HEMOGLOBIN 30.9 pg (27.0-33.4); MEAN CORPUSCULAR HGB CONC 34.5 g/dL (32.0-36.0); MEAN CORPUSCULAR VOLUME 90 fl (80-97); PLATELET COUNT 327 10^3/uL (150-450); RED BLOOD COUNT 4.27 10^6/uL (4.35-5.55); RED CELL DISTRIBUTION WIDTH 15.2 % (11.5-14.0); SEGMENTED NEUTROPHILS % (AUTO) 60.3 % (42-78); TOTAL CELLS COUNTED % (AUTO) 100 %; WHITE BLOOD COUNT 7.3 10^3/uL (4.0-10.5)
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
[2019-05-16 12:07] LABS: ANION GAP 10 (5-19); BLOOD UREA NITROGEN 14 mg/dL (7-20); CALCIUM 9.5 mg/dL (8.4-10.2); CARBON DIOXIDE 22 mmol/L (22-30); CHLORIDE 105 mmol/L (98-107); GLUCOSE 146 mg/dL (75-110); POTASSIUM 3.9 mmol/L (3.6-5.0)
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
[2019-05-16] MEDS: METOPROLOL TARTRATE 50 MG TABLET PO SCH ×2 (13:49→22:23)
--- NOTE | 2019-05-16 18:23 | XCELERA REPORT ---
[address] [address] Transthoracic Echocardiogram Report Name: RINKU ZAPATA Age: 63 yrs Gender: Male : 1955 Patient Status: Inpatient Patient Location: ICU^610^A Study Date: 05/16/2019 02:03 PM Height: 72 in Weight: 218 lb BSA: 2.2 m2 Procedure: A complete two-dimensional transthoracic echocardiogram was performed (2D, M-mode, spectral and color flow Doppler). The study was technically adequate with some images being suboptimal in quality. Reason For Study: acute CVA, CAD Ordering Physician: ADITYA ALEMAN Performed By: Rocio Whalen Interpretation Summary The left ventricle has normal cavity size with globally normal systolic function. Estimated left ventricular ejection fraction is 55%. There is borderline concentric left ventricular hypertrophy. The left ventricle is grossly normal size. Doppler measurements suggest pseudonormalized left ventricular relaxation, which is associated with grade II/IV or mild to moderate diastolic dysfunction Wall motion cannot be accurately commented on, but no definite regional wall motion abnormalities noted. The right ventricular systolic function is normal. Borderline left atrial enlargement. The right atrium is normal in size There is no mitral valve stenosis. There is a trace amount of mitral regurgitation No aortic regurgitation is present. There is no aortic valve stenosis There is a trace or physiologic amount of tricuspid regurgitation Tricuspid regurgitation jet envelope not well defined to measure RV systolic pressure accurately. The aortic root is not well visualized but is probably normal size. The inferior vena cava was not well visualized There is no pericardial effusion. No definite cardiac source of CVA/TIA noted on this particular trans-thoracic study. Consider SAQIB if clinically indicated. MMode/2D Measurements & Calculations RVDd: 3.0 cm LVIDd: 4.5 cm FS: 35.5 % Ao root diam: 2.9 cm IVSd: 0.99 cm LVIDs: 2.9 cm EDV(Teich): 94.2 ml Ao root area: 6.7 cm2 LVPWd: 0.96 cm ESV(Teich): 32.9 ml LA dimension: 3.1 cm EF(Teich): 65.1 % Doppler Measurements & Calculations MV E max nanci: MV P1/2t max nanci: Ao V2 max: LV V1 max P.3 cm/sec 51.3 cm/sec 99.4 cm/sec 3.8 mmHg MV A max nanci: MV P1/2t: 57.2 msec Ao max PG: LV V1 max: 88.7 cm/sec MVA(P1/2t): 3.8 cm2 3.9 mmHg 97.2 cm/sec MV E/A: 0.58 MV dec slope: 262.8 cm/sec2 MV dec time: 0.19 sec PA V2 max: MV P1/2t-pr_phl: 62.2 cm/sec 57.2 msec PA max P.5 mmHg Left Ventricle The left ventricle is grossly normal size. There is borderline concentric left ventricular hypertrophy. The left ventricle has normal cavity size with globally normal systolic function. Estimated left ventricular ejection fraction is 55%. Doppler measurements suggest pseudonormalized left ventricular relaxation, which is associated with grade II/IV or mild to moderate diastolic dysfunction. Wall motion cannot be accurately commented on, but no definite regional wall motion abnormalities noted. Right Ventricle The right ventricle is grossly normal size. There is normal right ventricular wall thickness. The right ventricular systolic function is normal. Atria The right atrium is normal in size. Borderline left atrial enlargement. Interarterial septum not well visualized and not well dopplered. Cannot comment on ASD/PFO presence. Mitral Valve The mitral valve is grossly normal. There is no mitral valve stenosis. There is a trace amount of mitral regurgitation. Aortic Valve The aortic valve is grossly normal. There is no aortic valve stenosis. No aortic regurgitation is present. Tricuspid Valve The tricuspid valve is not well visualized, but is grossly normal. There is no tricuspid stenosis. There is a trace or physiologic amount of tricuspid regurgitation. Tricuspid regurgitation jet envelope not well defined to measure RV systolic pressure accurately. Pulmonic Valve The pulmonic valve is not well visualized. Great Vessels The aortic root is not well visualized but is probably normal size. The inferior vena cava was not well visualized. Effusions There is no pericardial effusion. Incidental Findings No definite cardiac source of CVA/TIA noted on this particular trans-thoracic study. Consider SAQIB if clinically indicated. : ADITYA ALEMAN, Conor
[2019-05-16] MEDS: HEPARIN SOD (PORCINE) 5,000 UNIT/ML 1 ML VIAL SUBCUT SCH (22:25)
[2019-05-17 05:24] LABS: CHOLESTEROL 208.63 mg/dL (0-200); TRIGLYCERIDES 85 mg/dL (<150)
[2019-05-17 05:35] LABS: DIRECT LDL 148 mg/dL (<100)
[2019-05-17] MEDS: INSULIN REG, HUMAN 100 UNIT/ML 3 ML VIAL (PYX) SUBCUT SCH ×4 (08:00→22:06)
--- NOTE | 2019-05-17 11:24 | PDOC CRITICAL CARE PROG REPORT ---
General Date:: 05/17/19 - Critical Care Attending Note Resuscitation Status: Full Code Events in the past 12 to 24 Hours:: Pt had no acute overnight events. at bedside. Has no complaints. Reason for ICU Addmission:: tPA for stroke - Medications: Medications reviewed and adjusted accordingly: Yes Physical Exam Vital Signs: Temp Pulse Resp BP Pulse Ox 99.9 F 64 12 153/81 H 97 05/17/19 07:00 05/17/19 07:00 05/17/19 07:00 05/17/19 07:00 05/17/19 07:00 Intake & Output 05/16/19 05/17/19 05/18/19 06:59 06:59 06:59 Intake Total 1961 300 Output Total 1240 1675 Balance 721 -1375 Weight 99.1 kg 98.6 kg Weight/Height Weight 98.6 kg Height 6 ft General appearance: PRESENT: no acute distress, well-developed, well-nourished Head exam: PRESENT: atraumatic, normocephalic Respiratory exam: PRESENT: clear to auscultation valencia, unlabored Cardiovascular exam: PRESENT: RRR GI/Abdominal exam: PRESENT: soft Musculoskeletal exam: PRESENT: normal inspection Neurological exam: PRESENT: alert, awake, CN II-XII grossly intact, other - RUE and RLE strength 4+/5 Laboratory/Radiographs Laboratory Results: 05/16/19 11:17 05/16/19 11:17 05/16/19 05/16/19 05/17/19 11:17 11:17 04:39 WBC 7.3 RBC 4.27 L Hgb 13.2 L Hct 38.2 MCV 90 MCH 30.9 MCHC 34.5 RDW 15.2 H Plt Count 327 Seg Neutrophils % 60.3 Sodium 137.3 Potassium 3.9 Chloride 105 Carbon Dioxide 22 Anion Gap 10 BUN 14 Creatinine 1.10 Est GFR ( Amer) > 60 Glucose 146 H Calcium 9.5 Triglycerides 85 Cholesterol 208.63 H LDL Cholesterol Direct 148 H VLDL Cholesterol 17.0 HDL Cholesterol 47 05/14/19 05/14/19 14:51 14:51 Creatine Kinase 241 H CK-MB (CK-2) 1.58 Troponin I < 0.012 Impressions: Chest X-Ray 05/14/19 14:27 IMPRESSION: 1. No acute cardiopulmonary disease. 2. Scattered pulmonary nodules, several of which are indeterminate. A follow-up CT of the chest with IV contrast is recommended. 3. Probable bronchiectasis and pleural and parenchymal scarring at the left lung apex. Head CTA 05/14/19 14:50 IMPRESSION: NO CTA EVIDENCE OF STENOSIS OR ANEURYSM OF THE [place]. Neck CTA 05/14/19 14:50 IMPRESSION: NO CTA EVIDENCE OF STENOSIS OR ANEURYSM OF THE [place]. Head CT 05/15/19 14:30 IMPRESSION: No acute intracranial hemorrhage or other acute findings. EVIDENCE OF ACUTE STROKE: NO. Hip X-Ray 05/16/19 00:00 IMPRESSION: Multiple metallic BB overlie the left hip and pelvis as well as the upper thigh. Bilateral degenerative changes in the hips left greater than right. Assessment and Plan - Diagnosis (1) Acute ischemic stroke Is this a current diagnosis for this admission?: Yes (2) CAD (coronary artery disease) Qualifiers: Coronary Disease-Associated Artery/Lesion type: [place] artery [place] vs. 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 Plan: 1. Respiratory: stable on nasal cannula. Wean to room air. 2. CV: CAD, HTN. On asa, brilinta. Continue lopressor, resume home norvasc. Echo reviewed 3. Neuro: acute CVA s/p TPA. Repeat head CT negative. On asa and brilinta. MRI unable to be done due to metallic fragments in left thigh. Pt/OT 4. Endocrine: DM. Accuchecks, SSI 5. Nutrition: diabetic diet 6. PT/OT ordered. Case management consulted for IP rehab placement in pt's hometown [place], [place]. If pt's insurance does not pay for IP rehab, then he will have to go home with HH PT/OT. voices understanding. 7. Prophylaxis: sq heparin 8. Disposition: stable for transfer to telemetry. Either to rehab facility in [place], [place] or home soon. Critical Time Critical Time (minutes): 0 Level of Care: IMCU -: 1. The care of a critical patient is a dynamic process. This note is a technical sales representatives synopsis but static in nature. The timeframe for treatments given in order is not necessarily the actual time these treatments may have been done. 2. This patient requires critical care secondary to ongoing requirements for therapy not offered or safe outside the critical care environment. Transfer to a lower level of care will result in altered life or limb morbidity and mortality. 3. Multidisciplinary rounds completed. 4. ABCDE bundle addressed.
[2019-05-17] MEDS: METOPROLOL TARTRATE 50 MG TABLET PO SCH ×2 (11:42→22:16)
[2019-05-17] MEDS: TICAGRELOR 90 MG TABLET PO SCH ×2 (11:42→17:17)
[2019-05-17] MEDS: AMLODIPINE BESYLATE 5 MG TABLET PO SCH (11:42)
[2019-05-17] MEDS: HEPARIN SOD (PORCINE) 5,000 UNIT/ML 1 ML VIAL SUBCUT SCH ×2 (11:42→22:13)
[2019-05-17] MEDS: ASPIRIN 325 MG TABLET PO SCH (11:42)
[2019-05-18 04:22] LABS: HEMATOCRIT 41.9 % (37.9-51.0); HEMOGLOBIN 14.5 g/dL (13.5-17.0); MEAN CORPUSCULAR HEMOGLOBIN 30.9 pg (27.0-33.4); MEAN CORPUSCULAR HGB CONC 34.7 g/dL (32.0-36.0); MEAN CORPUSCULAR VOLUME 89 fl (80-97); PLATELET COUNT 354 10^3/uL (150-450); RED CELL DISTRIBUTION WIDTH 14.9 % (11.5-14.0); WHITE BLOOD COUNT 8.4 10^3/uL (4.0-10.5)
[2019-05-18 04:43] LABS: ANION GAP 11 (5-19); BLOOD UREA NITROGEN 17 mg/dL (7-20); CALCIUM 9.7 mg/dL (8.4-10.2); CARBON DIOXIDE 20 mmol/L (22-30); CHLORIDE 106 mmol/L (98-107); GLUCOSE 135 mg/dL (75-110); POTASSIUM 3.9 mmol/L (3.6-5.0)
--- NOTE | 2019-05-18 07:58 | PDOC DISCHARGE SUMMARY ---
Impression - Admit/DC Date/PCP Admission Date/Primary Care Provider: 05/14/19 19:10 Discharge Date: 05/18/19 - Discharge Diagnosis (1) Acute ischemic stroke Is this a current diagnosis for this admission?: Yes (2) CAD (coronary artery disease) Is this a current diagnosis for this admission?: Yes (3) DM type 2 (diabetes mellitus, type 2) Is this a current diagnosis for this admission?: Yes (4) HTN (hypertension) Is this a current diagnosis for this admission?: Yes - Additional Information Resuscitation Status: Full Code Discharge Diet: Diabetic Discharge Activity: Activity As Tolerated Home Medications: Amlodipine Besylate [Norvasc 5 mg Tablet] 5 mg PO DAILY 05/15/19 Atorvastatin Calcium [Lipitor 80 mg Tablet] 80 mg PO QHS 05/15/19 Gabapentin [Neurontin 400 mg Capsule] 400 mg PO Q8 05/15/19 Metoprolol Tartrate [Lopressor 50 mg Tablet] 50 mg PO Q12 05/15/19 Omeprazole 20 mg PO DAILY 05/15/19 Sitagliptin Phosphate [Januvia] 50 mg PO DAILY 05/15/19 Amlodipine Besylate [Norvasc 5 mg Tablet] 5 mg PO DAILY tablet 05/18/19 Aspirin [Aspirin 325 mg Tablet] 325 mg PO DAILY tablet 05/18/19 Metoprolol Tartrate [Lopressor 50 mg Tablet] 50 mg PO Q12 tablet 05/18/19 Ticagrelor [Brilinta 90 mg Tablet] 90 mg PO BID tablet 05/18/19 History of Present Illiness History of Present Illness: RINKU ZAPATA is a 63 year old male HPI Date:: 05/14/19 Time:: 17:00 Reason for ICU Reason:: tPA for stroke HPI: This patient is a 63 year old man who was travelling with his to see a developer automatic in [facility]. when he had a sudden onset of R sided weakness, speech difficulties alll C/W an ischemic stroke. He came to our ED where there were more contraindication for tPA and he was subsequently thrombolysed. He is still having symptoms but minor improvement just after 2 hours. Right now his BP and vitals are stable with BP running in 150s. Hospital Course Hospital Course: Assessment: 63 yo man with acute CVA s/p TPA, CAD, HTN, DM. Plan: 1. Respiratory: stable on room air 2. CV: CAD, HTN. On asa, brilinta. Continue lopressor, norvasc. Echo reviewed 3. Neuro: acute CVA s/p TPA. Repeat head CT negative. On asa and brilinta. MRI unable to be done due to metallic fragments in left thigh. Pt/OT 4. Endocrine: DM. Accuchecks, SSI 5. Nutrition: diabetic diet 6. Pt will be discharged home to [facility]. PT and OT will be arranged. Pt has appt with his PCP on 05/20/2019 Physical Exam Vital Signs: Temp Pulse Resp BP Pulse Ox 98.2 F 62 13 127/76 H 98 05/18/19 04:00 05/17/19 20:00 05/18/19 06:01 05/18/19 06:01 05/18/19 06:01 Intake & Output 05/17/19 05/18/19 05/19/19 06:59 06:59 06:59 Intake Total 300 500 Output Total 1675 175 Balance -1375 325 Weight 98.6 kg 96.4 kg General appearance: PRESENT: no acute distress, well-developed, well-nourished Head exam: PRESENT: atraumatic, normocephalic Respiratory exam: PRESENT: clear to auscultation [place], unlabored Cardiovascular exam: PRESENT: RRR GI/Abdominal exam: PRESENT: soft Musculoskeletal exam: PRESENT: normal inspection Results Laboratory Results: WBC 8.4 10^3/uL (4.0-10.5) 05/18/19 04:11 RBC 4.70 10^6/uL (4.35-5.55) 05/18/19 04:11 Hgb 14.5 g/dL (13.5-17.0) 05/18/19 04:11 Hct 41.9 % (37.9-51.0) 05/18/19 04:11 MCV 89 fl (80-97) 05/18/19 04:11 MCH 30.9 pg (27.0-33.4) 05/18/19 04:11 MCHC 34.7 g/dL (32.0-36.0) 05/18/19 04:11 RDW 14.9 % (11.5-14.0) H 05/18/19 04:11 Plt Count 354 10^3/uL (150-450) 05/18/19 04:11 Lymph % (Auto) 24.0 % (13-45) 05/16/19 11:17 Gilliam % (Auto) 9.0 % (3-13) 05/16/19 11:17 Eos % (Auto) 5.9 % (0-6) 05/16/19 11:17 Baso % (Auto) 0.8 % (0-2) 05/16/19 11:17 Absolute Neuts (auto) 4.4 10^3/uL (1.7-8.2) 05/16/19 11:17 Absolute Lymphs (auto) 1.7 10^3/uL (0.5-4.7) 05/16/19 11:17 Absolute Monos (auto) 0.7 10^3/uL (0.1-1.4) 05/16/19 11:17 Absolute Eos (auto) 0.4 10^3/uL (0.0-0.6) 05/16/19 11:17 Absolute Basos (auto) 0.1 10^3/uL (0.0-0.2) 05/16/19 11:17 Total Counted 100 05/14/19 19:31 Seg Neutrophils % 60.3 % (42-78) 05/16/19 11:17 Seg Neuts % (Manual) 57 % (42-78) 05/14/19 19:31 Lymphocytes % (Manual) 29 % (13-45) 05/14/19 19:31 Atypical Lymphs % 1 % (0) 05/14/19 19:31 Monocytes % (Manual) 6 % (3-13) 05/14/19 19:31 Eosinophils % (Manual) 7 % (0-6) H 05/14/19 19:31 Basophils % (Manual) 0 % (0-2) 05/14/19 19:31 Abs Neuts (Manual) 5.9 10^3/uL (1.7-8.2) 05/14/19 19:31 Abs Lymphs (Manual) 3.1 10^3/uL (0.5-4.7) 05/14/19 19:31 Abs Monocytes (Manual) 0.6 10^3/uL (0.1-1.4) 05/14/19 19:31 Absolute Eos (Manual) 0.7 10^3/uL (0.0-0.6) H 05/14/19 19:31 Abs Basophils (Manual) 0.0 10^3/uL (0.0-0.2) 05/14/19 19:31 Toxic Granulation SLIGHT 05/14/19 19:31 Platelet Comment ADEQUATE 05/14/19 19:31 Poikilocytosis SLIGHT 05/14/19 19:31 Anisocytosis SLIGHT 05/14/19 19:31 Ovalocytes SLIGHT 05/14/19 19:31 PT 12.8 SEC (11.4-15.4) 05/14/19 14:51 INR 0.96 05/14/19 14:51 APTT 28.6 SEC (23.5-35.8) 05/14/19 14:51 Sodium 137.4 mmol/L (137-145) 05/18/19 04:11 Potassium 3.9 mmol/L (3.6-5.0) 05/18/19 04:11 Chloride 106 mmol/L (98-107) 05/18/19 04:11 Carbon Dioxide 20 mmol/L (22-30) L 05/18/19 04:11 Anion Gap 11 (5-19) 05/18/19 04:11 BUN 17 mg/dL (7-20) 05/18/19 04:11 Creatinine 1.23 mg/dL (0.52-1.25) 05/18/19 04:11 Est GFR ( Amer) > 60 (>60) 05/18/19 04:11 Est GFR (MDRD) Non-Af 59 (>60) L 05/18/19 04:11 Glucose 135 mg/dL (75-110) H 05/18/19 04:11 POC Glucose 115 mg/dL (70-110) H 05/17/19 22:05 Calcium 9.7 mg/dL (8.4-10.2) 05/18/19 04:11 Total Bilirubin 0.5 mg/dL (0.2-1.3) 05/14/19 14:51 Direct Bilirubin 0.0 mg/dL (0.0-0.4) 05/14/19 14:51 Neonat Total Bilirubin Not Reportable 05/14/19 14:51 Neonat Direct Bilirubin Not Reportable 05/14/19 14:51 Neonat Indirect Bili Not Reportable 05/14/19 14:51 AST 25 U/L (17-59) 05/14/19 14:51 ALT 22 U/L (<50) 05/14/19 14:51 Alkaline Phosphatase 111 U/L (38-126) 05/14/19 14:51 Creatine Kinase 241 U/L (55-170) H 05/14/19 14:51 CK-MB (CK-2) 1.58 ng/mL (<4.55) 05/14/19 14:51 Troponin I < 0.012 ng/mL 05/14/19 14:51 Total Protein 7.5 g/dL (6.3-8.2) 05/14/19 14:51 Albumin 4.2 g/dL (3.5-5.0) 05/14/19 14:51 Triglycerides 85 mg/dL (<150) 05/17/19 04:39 Cholesterol 208.63 mg/dL (0-200) H 05/17/19 04:39 LDL Cholesterol Direct 148 mg/dL (<100) H 05/17/19 04:39 VLDL Cholesterol 17.0 mg/dL (10-31) 05/17/19 04:39 HDL Cholesterol 47 mg/dL (>40) 05/17/19 04:39 05/14/19 14:51 CK-MB (CK-2) 1.58 Troponin I < 0.012 Impressions: Chest X-Ray 05/14/19 14:27 IMPRESSION: 1. No acute cardiopulmonary disease. 2. Scattered pulmonary nodules, several of which are indeterminate. A follow-up CT of the chest with IV contrast is recommended. 3. Probable bronchiectasis and pleural and parenchymal scarring at the left lung apex. Head CT 05/14/19 14:27 IMPRESSION: No acute findings EVIDENCE OF ACUTE STROKE: NO. Head CTA 05/14/19 14:50 IMPRESSION: NO CTA EVIDENCE OF STENOSIS OR ANEURYSM OF THE [place] OF [place]. Neck CTA 05/14/19 14:50 IMPRESSION: NO CTA EVIDENCE OF STENOSIS OR ANEURYSM OF THE [place]TS. Head CT 05/15/19 14:30 IMPRESSION: No acute intracranial hemorrhage or other acute findings. EVIDENCE OF ACUTE STROKE: NO. Hip X-Ray 05/16/19 00:00 IMPRESSION: Multiple metallic BB overlie the left hip and pelvis as well as the upper thigh. Bilateral degenerative changes in the hips left greater than right. Plan Critical Time: 0 Level of Care: TELE Stroke Is this a Stroke Patient?: Yes Stroke Pt being discharged on Anti-thrombolytic therapy?: Yes Stroke Pt being discharged on Anti-coagulation therapy?: No Reason(s) for not prescribing Anti-coagulation therapy:: Not indicated Stroke Pt being discharged on Statins?: Yes Acute Heart Failure - Is this a Heart Failure Patient?: No
[2019-05-18 08:17] VITALS: BP 129/82
[2019-05-18] MEDS: METOPROLOL TARTRATE 50 MG TABLET PO SCH (10:14)
[2019-05-18] MEDS: ASPIRIN 325 MG TABLET PO SCH (10:14)
[2019-05-18] MEDS: TICAGRELOR 90 MG TABLET PO SCH (10:14)
[2019-05-18] MEDS: AMLODIPINE BESYLATE 5 MG TABLET PO SCH (10:14)
== END 2019-05-18 10:35 | disposition home or self-care (01) | DRG 66 ==
LOC: ER 14:25 → EH 19:10 → ICU 20:38
PROVIDERS: ADMIT Anesthesiology; ATTEND Anesthesiology
DX: I63.89 Other cerebral infarction (principal); R47.01 Aphasia; I25.118 Atherosclerotic heart disease of native coronary artery with other forms of angina pectoris; G44.89 Other headache syndrome; Z18.10 Retained metal fragments, unspecified; R29.810 Facial weakness; E11.9 Type 2 diabetes mellitus without complications; R29.720 NIHSS score 20; F32.9 Major depressive disorder, single episode, unspecified; I11.0 Hypertensive heart disease with heart failure; I50.9 Heart failure, unspecified; M79.5 Residual foreign body in soft tissue; Z87.828 Personal history of other (healed) physical injury and trauma; Z79.82 Long term (current) use of aspirin; Z87.891 Personal history of nicotine dependence; Z88.5 Allergy status to narcotic agent; Z79.84 Long term (current) use of oral hypoglycemic drugs; I25.2 Old myocardial infarction; Z95.5 Presence of coronary angioplasty implant and graft
CPT/HCPCS: 36415; 37195; 70450; 70496; 70498; 71045; 80048; 80053; 80061; 82550; 82553; 82962; 84484; 85025; 85027; 85610; 85730; 93005; 93010; 93306; 96374; 99238; 99285; 99291; 99292; C9113; J1170; J1644; J1815; J2270; J2997; J3490; J7030; S0028; S0119